=== PATIENT | female | born 1985 | race American Indian/Alaskan Native ===

== ENCOUNTER 2016-11-30 16:55 | Emergency (ER) | payer OTHER, BC ==
[2016-11-30 17:26] VITALS: BP 125/72
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
== END 2016-11-30 19:46 | disposition home or self-care (01) ==
LOC: ED 16:55
DX: M79.1 Myalgia (principal); E11.9 Type 2 diabetes mellitus without complications; V49.49XA Driver injured in collision with other motor vehicles in traffic accident, initial encounter; Y93.9 Activity, unspecified; Y92.9 Unspecified place or not applicable; Y99.9 Unspecified external cause status
CPT/HCPCS: 99282